=== PATIENT | male | born 1985 | race Caucasian/White ===

== ENCOUNTER 2017-11-11 11:17 | Emergency (ER) | payer SELFPAY ==
[2017-11-11 11:18] VITALS: BP 117/71; PULSE 81; RESP 17; TEMP 36.7; O2SAT 97; BMI 25.7
--- NOTE | 2017-11-11 12:46 | ED.DCSUM_ITS ---
- ER Visit Summary Date of Service: 11/11/17 Chief Complaint: Lower jaw dental pain and dental swelling History of Present Illness: The patient is a 32 M diagnosis a week ago [place] with a dental infection and he was written for clindamycin he said he could not afford to get it filled so he has had no antibiotic. He denies any fever. Said he does have swelling and increasing pain in his right jaw. Physical Examination: Well appearing young male. Vital signs are stable afebrile. H EENT exam is right lower molar there is an area of gum inflammation consistent with infection and abscess. The molar is decayed and eroded to the gumline. There is gum inflammation. Warm to touch there does not appear to be any fluctuance. Nothing to be drained at this time. He has mild right-sided facial swelling. Rest of his dentition is pretty good shape. Posterior pharynx is unremarkable no trouble swallowing or breathing. No drooling. Underneath his tongue the tissue is soft and does not appear to be infected. No signs of Ludwigs angina. Test Results: None Emergency Department Course and Treatment: Pen-Vee K 500 4 times daily for 10 days. Motrin for pain. Limited [place] 10 no refill. He has a dentist he is going to follow-up with an Jovany Watkins. Treatment Plan: [] Disposition: Discharge Impression: Right lower jaw dental pain with molar cavity and abscess This note was generated with [employer] dictation software. It may contain incorrect words, spelling, and punctuation that were not noted in review of the chart prior to signing ED Disposition - Plan for ED Patient: Chief Complaint: Dental Referrals: Care Physician,No Primary [Primary Care Provider] -
--- NOTE | 2017-11-11 12:46 | ED.DEP ---
ED Disposition - Plan for ED Patient: Disposition: Home or Assisted Living Chief Complaint: Dental Instructions: Dental Abscess, ED Cavity Dental Prescriptions: Hydrocodone/Acetaminophen [[place] 10-325 Tablet] 1 ea PO Q4H PRN PRN #14 tab PRN Reason: Pain Penicillin (100ML) [Pen-Vee K] 500 mg PO 4X/DAY #40 ml Additional Instructions: Warm salt water gargling. Limited [place] and Motrin 600 mg 3 times a day for pain. Return if getting worse you may need to have the dental abscess drained but at this time it is firm and infected tissue there is no pus pocket. Pen-Vee K 500 mg 4 times a day till gone. Follow-up with your dentist as soon as possible.
--- NOTE | 2017-11-11 12:49 | DCINST.ED_ITS ---
ED Disposition - Plan for ED Patient: Disposition: Home or Assisted Living Chief Complaint: Dental Instructions: Dental Abscess, ED Cavity Dental Prescriptions: Hydrocodone/Acetaminophen [[place] 10-325 Tablet] 1 ea PO Q4H PRN PRN #14 tab PRN Reason: Pain Penicillin (100ML) [Pen-Vee K] 500 mg PO 4X/DAY #40 ml Additional Instructions: Warm salt water gargling. Limited [place] and Motrin 600 mg 3 times a day for pain. Return if getting worse you may need to have the dental abscess drained but at this time it is firm and infected tissue there is no pus pocket. Pen-Vee K 500 mg 4 times a day till gone. Follow-up with your dentist as soon as possible.
[2017-11-11 12:58] VITALS: RESP 12
[2017-11-11] MEDS: Penicillin Vk 250 MG Tablet 500 MG PO (12:58)
== END 2017-11-11 12:59 | disposition home or self-care (01) ==
PROVIDERS: Emergency Provider Emergency Medicine
DX: K04.7 Periapical abscess without sinus (principal); K02.9 Dental caries, unspecified; K08.89 Other specified disorders of teeth and supporting structures; F17.200 Nicotine dependence, unspecified, uncomplicated
CPT/HCPCS: 99283

== ENCOUNTER 2019-08-19 18:36 | Emergency (ER) | payer SELFPAY ==
[2019-08-19 18:37] VITALS: BP 128/83; PULSE 102; PULSE 103; RESP 18; TEMP 37.6; O2SAT 97; O2SAT 98; BMI 24.5
--- NOTE | 2019-08-19 21:30 | ED.RN ---
RN AT BEDSIDE TO START IV & FLUIDS. PT STATES HE DOESN'T WANT ANY OF THAT SINCE HE IS FLU B POSITIVE. PT STATES I WANT A WORK EXCUSE AND D/C INSTRUCTIONS. PT ALSO STATES HE DRINKS ENOUGH FLUIDS. RN TO LET DR. GEIGER KNOW AT THIS TIME. RN WILL CONTINUE TO MONITOR PATIENT.
--- NOTE | 2019-08-19 21:32 | ED.DCSUM_ITS ---
- ER Visit Summary Date of Service: 08/19/19 Chief Complaint: Cough and congestion History of Present Illness: The patient is a 34 M who presents with cough and congestion that is been getting worse over the past couple days. Patient states he went to another emergency department and was given Gatorade and discharged home. Patient states he feels like he has generalized aches in his joints and muscles. Patient states he is having a cough with some white to clear sputum production. Patient admits to subjective fevers and chills. Patient also admits to a sore throat. Patient admits to a mild headache. Patient admits to nausea but denies any vomiting. Physical Examination: Vital signs are stable. Patient is afebrile. Patient is in no acute distress. Oral mucosa is pink and moist. Neck is supple. Trachea is midline. There is no JVD. Heart was regular rate and rhythm. Lungs are clear and equal bilaterally. Abdomen is soft. Bowel sounds are normal. There is mild diffuse tenderness. There is no rebound or guarding noted. Cranial nerves II through XII are intact. There are no focal motor or sensory deficits noted. Extremities are intact. There is full range of motion in all extremities. Test Results: A CBC and basic metabolic profile were ordered. Patient refused these labs. Emergency Department Course and Treatment: Patient was ordered IV fluids however, he refused these as well. Patient states he just wants his work note and wants to go home. Patient was given a note for work for today. Patient was instructed to drink plenty of fluids. Patient was instructed to follow-up with his primary care physician in 5 to 7 days. Patient understood and was agreeable with the plan. All questions were answered. Disposition: Discharge home Impression: Viral illness This note was generated with [employer] software. It may contain incorrect words, spelling, and punctuation that were not noted in review of the chart prior to signing ED Disposition - Plan for ED Patient: Disposition: Home or Assisted Living Diagnosis: Viral syndrome Instructions: VIRAL SYNDROME (Adult) Referrals: Care Physician,No Primary [Primary Care Provider] - 5-7 Days
== END 2019-08-19 21:52 | disposition home or self-care (01) ==
PROVIDERS: Emergency Provider Emergency Medicine
DX: B34.9 Viral infection, unspecified (principal); R05 Cough; R09.81 Nasal congestion; M79.10 Myalgia, unspecified site; M25.50 Pain in unspecified joint; R68.83 Chills (without fever); J02.9 Acute pharyngitis, unspecified; R51 Headache; R11.0 Nausea; R53.1 Weakness; F17.200 Nicotine dependence, unspecified, uncomplicated
CPT/HCPCS: 87804; 99282